=== PATIENT | male | born 1980 | race Caucasian/White ===

== ENCOUNTER 2017-12-12 19:37 | Emergency (ER) | payer MEDICARE, MEDICAID ==
[2017-12-12 21:22] LABS: ABS Basophils 0.1 10^3/ul (0-0.2); ABS Eosinophils 0.2 10^3/ul (0-0.6); ABS Lymphocytes 3.5 10^3/ul (1.0-4.8); ABS Monocytes 0.9 10^3/ul (0-0.8); ABS Neutrophils 4.9 10^3/ul (1.5-7.7); ABS Nucleated RBC 0 10^3/ul; Eosinophil % 2.4 % (0-6); Hematocrit 43 % (42-52); Hemoglobin 15.2 g/dl (14.0-18.0); Lymphocyte % 36.7 % (25-47); Mean Corpuscular HGB Conc 36 g/dl (31-36); Mean Corpuscular Hemoglobin 30 pg (27-31); Mean Corpuscular Volume 85 fL (80-94); Mean Platelet Volume 7 um3 (7.4-10.4); Nucleated Red Blood Cells % 0; Platelet Count 320 10^3/ul (150-450); Red Blood Count 5.05 10^6/ul (4.0-5.4); Red Cell Distribution Width 13 % (10.5-15); White Blood Count 9.6 10^3/ul (3.5-10.8)
[2017-12-12 21:39] LABS: EGFR Non-African American 106.6 (>60)
[2017-12-12 22:16] LABS: Urine Appearance Cloudy; Urine Blood Negative (Negative); Urine Color Amber; Urine Ketones Trace (Negative); Urine Protein 1+(30 mg/dL) (Negative); Urine Specific Gravity 1.032 (1.010-1.030); Urine Urobilinogen Negative (Negative)
--- NOTE | 2017-12-12 23:00 | ED ---
Terry Womack Stephanie, scribed for Emeterio Worrell MD on 12/12/17 at 2110 . Psychiatric Complaint - HPI Summary HPI Summary: The pt is a 37 y/o M presenting to the ED with c/o hearing voices that began 2 days ago. Symptoms include symptoms of psychosis and feeling physically sick. The pt denies fever. He states he hears conversations between his brother and father about persecution. The pt used to take antipsychotic medications but stopped due to a facial twitch. The facial twitch resolved 2 days after cessation of the antipsychotic medication. - History Of Current Complaint Chief Complaint: EDMentalHealth Time Seen by Provider: 12/12/17 21:05 Hx Obtained From: Patient Onset/Duration: Gradual Onset Timing: Constant Severity Currently: Mild Aggravating Factor(s): Nothing Alleviating Factor(s): Nothing Associated Signs And Symptoms: Positive: Hallucinating - auditory - Allergies/Home Medications Allergies/Adverse Reactions: Allergies Allergy/AdvReac Type Severity Reaction Status Date / Time No Known Allergies Allergy Verified 12/12/17 19:50 PMH/Surg Hx/FS Hx/Imm Hx Sensory History: Denies: Hx Legally Blind EENT History: Denies: Hx Deafness - Surgical History Surgery Procedure, Year, and Place: none Infectious Disease History: No Infectious Disease History: Denies: Traveled Outside the [place] in Last 30 Days - Family History Known Family History: Positive: Cardiac Disease, Diabetes, Other - cancer - Social History Occupation: Disabled Lives: With Family Alcohol Use: None Substance Use Type: Reports: None Smoking Status (MU): Never Smoked Tobacco Review of Systems Negative: Fever Positive: Other - auditory hallucinations All Other Systems Reviewed And Are Negative: Yes Physical Exam - Summary Physical Exam Summary: Appearance: Well-appearing, Well-nourished Skin: Warm, Dry, No rash Eyes: Normal, PERRL, EOMI, sclera anicteric ENT: Normal Neck: Supple, nontender Respiratory: Clear to auscultation Cardiovascular: S1, S2, no murmur, no rub, no gallop Abdomen: Soft, nontender, no organomegaly Bowel sounds: Present Musculoskeletal: Normal, Strength/ROM Intact, no edema, pulses symmetrical Neurological: Normal, A&Ox3, cranial nerves II-XII WNL, follows commands, gait not tested, sensation intact to pin and light touch Psychiatric: affect normal, behavior appropriate, dressed appropriately, judgment intact Triage Information Reviewed: Yes Vital Signs On Initial Exam: Initial Vitals Temp Pulse Resp BP Pulse Ox 98.2 F 104 16 133/91 98 12/12/17 19:45 12/12/17 19:45 12/12/17 19:45 12/12/17 19:45 12/12/17 19:45 Vital Signs Reviewed: Yes Diagnostics - Vital Signs Vital Signs Temp Pulse Resp BP Pulse Ox 12/12/17 19:45 98.2 F 104 16 133/91 98 - Laboratory Result Diagrams: 12/12/17 21:11 12/12/17 21:11 Lab Statement: Any lab studies that have been ordered have been reviewed, and results considered in the medical decision making process. Course/Dx - Course Course Of Treatment: The pt is a sign out to Dr. Hinton at shift change pending MHE. - Differential Dx/Clinical Impression Provider Diagnosis: Psychosis, possible schizophrenia Discharge - Discharge Plan Condition: Stable Disposition: OTHER Discharge Disposition Comment: The pt is a sign out to Dr. Hinton at shift change pending MHE. Referrals: John Amin MD [Primary Care Provider] - The documentation as recorded by the Terry cummings Stephanie accurately reflects the service I personally performed and the decisions made by me, Emeterio Worrell MD.
[2017-12-13 06:19] VITALS: BP 118/92
--- NOTE | 2017-12-13 06:55 | ED ---
Gladys Womack Gabriel, scribed for Amanda Hinton MD on 12/13/17 at 0623 . Progress - Progress Note Progress Note: This patient was signed out from Dr. Worrell, pending disposition, awaiting MHE. After MHE by psychiatrist the patient was deemed to return home. The patients condition is stable and will be discharged to home with Dx of psychosis. - Consult/PCP Time Called: 19:45 Course/Dx - Course Course Of Treatment: This patient was signed out from Dr. Worrell, pending disposition, awaiting MHE. After MHE by psychiatrist the patient was deemed to return home. The patients condition is stable and will be discharged to home with Dx of psychosis. - Diagnoses Provider Diagnoses: Psychosis The documentation as recorded by the Gladys cummings Gabriel accurately reflects the service I personally performed and the decisions made by , Amanda Hinton MD.
== END 2017-12-13 06:40 ==
LOC: ED 19:39
DX: F29 Unspecified psychosis not due to a substance or known physiological condition (principal); R44.0 Auditory hallucinations
CPT/HCPCS: 36415; 80053; 80307; 80320; 81003; 81015; 84443; 85025; 99283; G0480

== ENCOUNTER 2018-01-16 21:56 | Inpatient (IN) | payer MEDICARE, MEDICAID ==
[2018-01-16 22:32] LABS: ABS Basophils 0.1 10^3/ul (0-0.2); ABS Eosinophils 0.2 10^3/ul (0-0.6); ABS Lymphocytes 3.5 10^3/ul (1.0-4.8); ABS Monocytes 0.8 10^3/ul (0-0.8); ABS Neutrophils 5.7 10^3/ul (1.5-7.7); ABS Nucleated RBC 0 10^3/ul; Hematocrit 43 % (42-52); Hemoglobin 15.1 g/dl (14.0-18.0); Lymphocyte % 34.2 % (25-47); Mean Corpuscular HGB Conc 35 g/dl (31-36); Mean Corpuscular Hemoglobin 30 pg (27-31); Mean Corpuscular Volume 85 fL (80-94); Mean Platelet Volume 7 um3 (7.4-10.4); Nucleated Red Blood Cells % 0; Platelet Count 330 10^3/ul (150-450); Red Blood Count 5.08 10^6/ul (4.0-5.4); Red Cell Distribution Width 12 % (10.5-15); White Blood Count 10.3 10^3/ul (3.5-10.8)
[2018-01-16 22:33] LABS: Urine Appearance Clear; Urine Blood Negative (Negative); Urine Color Yellow; Urine Ketones Negative (Negative); Urine Protein Negative (Negative); Urine Specific Gravity 1.021 (1.010-1.030); Urine Urobilinogen Negative (Negative)
[2018-01-16 22:43] LABS: EGFR Non-African American 93.2 (>60)
--- NOTE | 2018-01-17 01:59 | ED ---
Thomas Womack Rebecca, scribed for Amanda Hinton MD on 01/16/18 at 2208 . Psychiatric Complaint - HPI Summary HPI Summary: Pt is a 37 y/o M who presents to ED due to experiencing delusions. Pt reports for multiple weeks he has been "getting subliminal messages" and a "flow of delusional thinking going through my head." Denies SIs, HIs. Pt was on Abilify, but in June 2017 he began experiencing a facial twitch which has since stopped , so he no longer takes any medication. Pt has a psychiatrist with [facility], though he has not seen him in "some time." - History Of Current Complaint Chief Complaint: EDMentalHealth Time Seen by Provider: 01/16/18 22:03 Hx Obtained From: Patient Onset/Duration: Lasting Weeks, Still Present Aggravating Factor(s): Nothing Alleviating Factor(s): Nothing Related History: Positive For: Prior Psychiatric Issues - Schizophrenia, anxiety Has Suicidal: Denies: Thoughts Has Homicidal: Denies: Thoughts - Allergies/Home Medications Allergies/Adverse Reactions: Allergies Allergy/AdvReac Type Severity Reaction Status Date / Time No Known Allergies Allergy Verified 01/17/18 01:53 PMH/Surg Hx/FS Hx/Imm Hx GI History: Reports: Hx Gastroesophageal Reflux Disease Sensory History: Denies: Hx Legally Blind, Hx Deafness Opthamlomology History: Denies: Hx Legally Blind Psychiatric History: Reports: Hx Anxiety, Hx Schizophrenia Denies: Hx Eating Disorder - Surgical History Surgery Procedure, Year, and Place: none Infectious Disease History: No Infectious Disease History: Denies: Traveled Outside the [place] in Last 30 Days - Family History Known Family History: Positive: Cardiac Disease, Diabetes, Other - cancer - Social History Alcohol Use: None Substance Use Type: Reports: None Smoking Status (MU): Never Smoked Tobacco Review of Systems Negative: Fever Positive: Other - Delusions; NEGATIVE: SIs, HIs All Other Systems Reviewed And Are Negative: Yes Physical Exam - Summary Physical Exam Summary: VITAL SIGNS: Reviewed. GENERAL: ~Patient is a well-developed and nourished male who is lying comfortable in the stretcher. Patient is not in any acute respiratory distress. HEAD AND FACE: No signs of trauma. No ecchymosis, hematomas or skull depressions. No sinus tenderness. EYES: PERRLA, EOMI x 2, No injected conjunctiva, no nystagmus. EARS: Hearing grossly intact. Ear canals and tympanic membranes are within normal limits. MOUTH: Oropharynx within normal limits. NECK: Supple, trachea is midline, no adenopathy, no JVD, no carotid bruit, no c- spine tenderness, neck with full ROM. CHEST: Symmetric, no tenderness at palpation LUNGS: Clear to auscultation bilaterally. No wheezing or crackles. CVS: Regular rate and rhythm, S1 and S2 present, no murmurs or gallops appreciated. EXTREMITIES: FROM in all major joints, no edema, no cyanosis or clubbing. NEURO: Alert and oriented x 3. No acute neurological deficits. Speech is normal and follows commands. SKIN: Dry and warm Triage Information Reviewed: Yes Vital Signs On Initial Exam: Initial Vitals Temp Pulse Resp BP Pulse Ox 98.1 F 104 16 178/122 99 01/16/18 21:58 01/16/18 21:58 01/16/18 21:58 01/16/18 21:58 01/16/18 21:58 Vital Signs Reviewed: Yes Diagnostics - Vital Signs Vital Signs Temp Pulse Resp BP Pulse Ox 01/16/18 21:58 98.1 F 104 16 178/122 99 - Laboratory Result Diagrams: 01/16/18 22:16 01/16/18 22:16 Lab Statement: Any lab studies that have been ordered have been reviewed, and results considered in the medical decision making process. Course/Dx - Course Assessment/Plan: Pt is a 37 y/o M who presents to ED due to experiencing delusions. Pt reports for multiple weeks he has been "getting subliminal messages" and a "flow of delusional thinking going through my head." Denies SIs , HIs. Pt was on Abilify, but in June 2017 he began experiencing a facial twitch which has since stopped, so he no longer takes any medication. Pt has a psychiatrist with [facility], though he has not seen him in "some time." Upon completion of MHE and consult with Dr. Alexandra, it has been determined that the pt will be admitted to the MHU, involuntary status with Dx of psychosis NOS. Elevated BP noted. - Differential Dx/Clinical Impression Provider Diagnosis: Psychosis, psychosis, NOS Discharge - Discharge Plan Condition: Stable Disposition: [place]IATR[facility] [place] [place] Referrals: John mAin MD [Primary Care Provider] - The documentation as recorded by the Thomas cummings Rebecca accurately reflects the service I personally performed and the decisions made by me, Amanda Hinton MD.
[2018-01-17] MEDS ORDERED: Al Hydrox/Mg Hydrox/Simet LIQ* 30 ML UDC PO PRN (03:00)
[2018-01-17] MEDS ORDERED: Acetaminophen TAB* 325 MG PO PRN (03:00)
[2018-01-17] MEDS: Vitamin THERAPEUTIC TAB PO SCH (09:46)
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
[2018-01-18] MEDS: Vitamin THERAPEUTIC TAB PO SCH (09:34)
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
[2018-01-18] MEDS: Paliperidone ER TAB* 3 MG TAB.ER PO SCH (23:07)
[2018-01-19] MEDS: Paliperidone ER TAB* 3 MG TAB.ER PO SCH (09:50)
[2018-01-19] MEDS: Vitamin THERAPEUTIC TAB PO SCH (09:50)
--- NOTE | 2018-01-19 11:57 | PN ---
MHU: Group Therapy Note - Service Type Service Type: [id number] Group Psychotherapy - Cognitive Behavioral Group Therapy ( CBT):Patient attended CBT programming this morning and presented with flat affect that did not vary with discussion. Although responsive to direct prompts to respond to questions, patient did not engage in spontaneous conversation.
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
[2018-01-20] MEDS: Vitamin THERAPEUTIC TAB PO SCH (10:07)
[2018-01-20] MEDS: Paliperidone ER TAB* 3 MG TAB.ER PO SCH (10:07)
--- NOTE | 2018-01-20 16:01 | PN ---
Subjective - Subjective Date of Service: 01/20/18 Service Type: 43016 Hosp care 15 min low complexity Subjective: Lee is seen today in weekend coverage for [employer] Nargis Altamirano. He remains somewhat seclusive per staff and I find him alone in his room while the majority of his peers are out in the day area. He is calm and cooperative, mostly minimizing the circumstances leading to his admission. He is tolerating oral paliperidone well and states that he would prefer to stay on this, as opposed to going on the once-monthly injectable version. He denies complaints including SI or HI. Objective - Appearance Appearance: Well Developed/Nourished Dysmorphic Features: No Hygiene: Normal Grooming: Well Kept - Behavior Psychomotor Activities: Normal Exhibits Abnormal Movement: No - Attitude and Relatedness Attitude and Relatedness: Cooperative Eye Contact: Fair - Speech Quality: Unpressured Latencies: Normal Quantity: Appropriate - Mood Patient's Decription of Mood: "Good" - Affect Observed Affect: Fair Affect Consistent with: Euthymia - Thought Process Patient's Thought Process: Coherent Thought Content: Yes Paranoid Ideation, No Passive Wish, No Suicidal Planning, No Homicidal Ideation - Sensorium Experiencing Hallucinations: No, Sensorium is Clear Type of Hallucinations: Visual: No, Auditory: No, Command: No - Level of Consciousness Level of Consciousness: Alert Orientation: Yes Intact, Yes Orientated to Time, Yes Orientated to Place, Yes Orientated to Person - Impulse Control Impulse Control: Tenuous - Insight and Judgement Insight and Judgement: Fair - Group Participation Particating in Group Activities: No - Medication Management Medication Management Adherence: Yes Assessment - Assessment Merits Inpatient Hospitalization: For Immediate Safety, For Stabilization Inpatient DSM-V Dx: F25.0 Clinical Impression: 37 y.o. single, white male with a history of schizoaffective Disorder sent via ambulance on involuntary status due to agitated behavior in the setting of psychosis and non-adherence with antipsychotic medication. Plan - Plan Treatment Plan: Name: LEE HAWKINS Birthdate: 1980 [id number] The patient is now on a trial of paliperidone 3mg PO qday. Considering STREET form of this. Continue inpatient treatment. Continued Medication Management: Start Medication Medications: Current Medications Acetaminophen (Tylenol Tab*) 650 mg PO Q4H PRN PRN Reason: PAIN or TEMP > 101 F Last Admin: 01/18/18 07:39 Dose: 650 mg Al Hydrox/Mg Hydrox/Simethicone (Maalox Plus*) 30 ml PO Q4H PRN PRN Reason: INDIGESTION Multivitamins (Theragran Tab*) 1 tab PO DAILY [facility] Last Admin: 01/20/18 10:07 Dose: 1 tab Paliperidone (Invega Er Tab*) 3 mg PO DAILY [facility] Last Admin: 01/20/18 10:07 Dose: 3 mg - Discharge Plan Discharge Plan: Inpatient Hospitalization
[2018-01-21] MEDS: Vitamin THERAPEUTIC TAB PO SCH (09:02)
[2018-01-21] MEDS: Paliperidone ER TAB* 3 MG TAB.ER PO SCH (09:02)
[2018-01-22] MEDS: Vitamin THERAPEUTIC TAB PO SCH (10:04)
[2018-01-22] MEDS: Paliperidone ER TAB* 3 MG TAB.ER PO SCH (10:04)
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
[2018-01-23] MEDS: Paliperidone ER TAB* 3 MG TAB.ER PO SCH ×2 (09:31→10:28)
[2018-01-23] MEDS: Vitamin THERAPEUTIC TAB PO SCH ×2 (09:31→10:28)
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
[2018-01-24] MEDS: Vitamin THERAPEUTIC TAB PO SCH (10:12)
[2018-01-24] MEDS: Paliperidone ER TAB* 3 MG TAB.ER PO SCH (10:12)
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
[2018-01-24] MEDS ORDERED: diPHENhydraMINE PO* 50 MG PO ONE (12:31)
[2018-01-24] MEDS ORDERED: LORazepam TAB(*) 1 MG ONE (12:32)
[2018-01-24] MEDS ORDERED: Haloperidol TAB* 5 MG PO ONE (12:32)
[2018-01-24] MEDS ORDERED: diPHENhydraMINE PO* 50 MG ONE (12:32)
[2018-01-24] MEDS ORDERED: Haloperidol TAB* 5 MG ONE (12:32)
[2018-01-24] MEDS ORDERED: LORazepam TAB(*) 1 MG PO ONE (12:32)
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
[2018-01-24] MEDS ORDERED: diPHENhydraMINE PO* 50 MG PO PRN (14:33)
[2018-01-24] MEDS ORDERED: LORazepam TAB(*) 1 MG PO PRN (14:34)
[2018-01-24] MEDS ORDERED: Haloperidol TAB* 5 MG PO PRN (14:38)
[2018-01-24] MEDS ORDERED: Paliperidone ER TAB* 6 MG TAB.ER PO SCH (21:00)
[2018-01-25] MEDS: Vitamin THERAPEUTIC TAB PO SCH (09:42)
[2018-01-25] MEDS ORDERED: Paliperidone SUSTENNA* 234 MG/1.5 ML IM ONE (14:57)
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
[2018-01-26] MEDS: Vitamin THERAPEUTIC TAB PO SCH (09:25)
--- NOTE | 2018-01-26 12:04 | PN ---
MHU: Group Therapy Note - Service Type Service Type: [id number] Group Psychotherapy - Cognitive Behavioral Group Therapy ( CBT):Patient attended CBT programming this morning and presented with flat affect that did not vary with discussion. Although responsive to direct prompts to respond to questions, patient did not engage in spontaneous conversation.
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
[2018-01-27] MEDS: Vitamin THERAPEUTIC TAB PO SCH (16:17)
[2018-01-28] MEDS: Vitamin THERAPEUTIC TAB PO SCH (09:30)
[2018-01-29] MEDS: Vitamin THERAPEUTIC TAB PO SCH (09:26)
[2018-01-29] MEDS ORDERED: Paliperidone SUSTENNA* 156 MG/1 ML IM ONE (11:30)
--- NOTE | 2018-01-29 13:14 | PN ---
MHU: Group Therapy Note - Service Type Service Type: [id number] Group Psychotherapy - Cognitive Behavioral Group Therapy ( CBT):Patient attended CBT programming this morning and presented with flat affect that did not vary with discussion. Although responsive to direct prompts to respond to questions, patient did not engage in spontaneous conversation.
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
[2018-01-30] MEDS: Vitamin THERAPEUTIC TAB PO SCH (08:06)
[2018-01-31] MEDS: Vitamin THERAPEUTIC TAB PO SCH (09:36)
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
[2018-02-01 07:52] VITALS: BP 102/83
[2018-02-01] MEDS: Vitamin THERAPEUTIC TAB PO SCH (08:45)
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
== END 2018-02-01 13:00 | disposition home or self-care (01) | DRG 885 ==
LOC: ED 21:56 → BSU 01-17 02:32
PROVIDERS: ADMIT Psychiatry & Neurology Psychiatry; ATTEND Psychiatry & Neurology Psychiatry
PROC: GZHZZZZ Group Psychotherapy (ICD-10-PCS; principal; 2018-01-17)
DX: F25.0 Schizoaffective disorder, bipolar type (principal); I10 Essential (primary) hypertension; E78.5 Hyperlipidemia, unspecified; K21.9 Gastro-esophageal reflux disease without esophagitis; F41.9 Anxiety disorder, unspecified; Z82.49 Family history of ischemic heart disease and other diseases of the circulatory system; Z83.3 Family history of diabetes mellitus; Z80.9 Family history of malignant neoplasm, unspecified; Z81.8 Family history of other mental and behavioral disorders; Z91.14 Patient's other noncompliance with medication regimen
CPT/HCPCS: 36415; 80053; 80061; 80307; 80320; 80329; 81003; 83036; 84443; 85025; 90853; 99222; 99231; 99233; 99238; 99285; A9270-GY; G0480; J2426